=== PATIENT | female | born 1995 | race African-American/Black ===

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

== ENCOUNTER 2018-02-22 22:01 | Emergency (ER) | payer OTHER ==
[2018-02-22 22:10] VITALS: BP 110/74
== END 2018-02-22 22:42 | disposition left against medical advice (07) ==
LOC: ED 22:01
DX: B99.9 Unspecified infectious disease (principal); Z53.21 Procedure and treatment not carried out due to patient leaving prior to being seen by health care provider

== ENCOUNTER 2019-03-12 12:55 | Emergency (ER) | payer OTHER ==
[2019-03-12] MEDS ORDERED: Lidocaine 1% MPF ** 5 ML VIAL INJ ONE (14:59)
--- NOTE | 2019-03-12 15:03 | ED ---
Skin Complaint - HPI Summary HPI Summary: Patient is a 23-year-old female who presents emergency department for a painful lump to her right labia 3 days. Patient states she has had similar symptoms in the past but area has drained on its own. Patient denies past medical history. Denies fever or chills. Symptoms are mild in severity. Touching makes symptoms worse. Nothing makes symptoms better. - History of Current Complaint Chief Complaint: EDRashSkinAbscess Time Seen by Provider: 03/12/19 14:08 Stated Complaint: CYST PER PT Hx Obtained From: Patient Hx Last Menstrual Period: now Pain Intensity: 2 - Allergy/Home Medications Allergies/Adverse Reactions: Allergies Allergy/AdvReac Type Severity Reaction Status Date / Time No Known Allergies Allergy Verified 03/12/19 13:01 PMH/Surg Hx/FS Hx/Imm Hx Previously Healthy: Yes - Cancer History Hx Hematologic Symptoms: No Hx Palliative Cancer Treatment: No - Surgical History Hx Anesthesia Reactions: No Infectious Disease History: No Infectious Disease History: Denies: Traveled Outside the [place] in Last 30 Days - Family History Known Family History: Positive: Other - migraines, Non-Contributory - Social History Occupation: Student Lives: With Family Alcohol Use: None Substance Use Type: Reports: None Hx Tobacco Use: No Smoking Status (MU): Never Smoked Tobacco Review of Systems Constitutional: Negative Gastrointestinal: Negative Positive: other - labial abscess All Other Systems Reviewed And Are Negative: Yes Physical Exam Triage Information Reviewed: Yes Vital Signs On Initial Exam: Initial Vitals Temp Pulse Resp BP Pulse Ox 98.3 F 69 16 120/74 96 03/12/19 12:57 03/12/19 12:57 03/12/19 12:57 03/12/19 12:57 03/12/19 12:57 Vital Signs Reviewed: Yes Appearance: Positive: Well-Appearing - Patient sitting on bed in no acute distress. Pleasant. Skin: Positive: Warm, Dry, Other - 2 centimeter area of fluctuance and erythema noted to lateral aspect of right upper labia majora. Area tender to palpation. Head/Face: Positive: Normal Head/Face Inspection Eyes: Positive: Normal, EOMI Neck: Positive: Supple Neurological: Positive: Normal, CN Intact II-III Psychiatric: Positive: Affect/Mood Appropriate Procedures - Sedation Patient Received Moderate/Deep Sedation with Procedure: No - Incision and Drainage Right Groin Site: right superior labia major Anesthesia: Local, Lidocaine Instrument(s): Scalpel Diagnostics - Vital Signs Vital Signs Temp Pulse Resp BP Pulse Ox 03/12/19 12:57 98.3 F 69 16 120/74 96 - Laboratory Lab Statement: Any lab studies that have been ordered have been reviewed, and results considered in the medical decision making process. Course/Dx - Course Course Of Treatment: Patient with small labial abscess that was incised and drained as noted above. A small amount of purulent discharge was expressed. Wound culture obtained. We'll place patient on Bactrim. Advised to continue warm compresses. Tylenol or Motrin pain as directed. Follow-up with the health clinic for wound check in 3 days. To return to the ER for increased redness, pain, swelling or if concerned. Patient understands and agrees with plan. - Differential Diagnoses - Skin Complaint Differential Diagnoses: Abscess, Cellulitis - Diagnoses Provider Diagnoses: Labial abscess Discharge ED - Sign-Out/Discharge Documenting (check all that apply): Patient Departure - Discharge Plan Condition: Good Disposition: HOME Prescriptions: Sulfamethox/Trimethoprim DS* [Bactrim DS 800/160 TAB*] 1 tab PO BID #20 tab Patient Education Materials: Abscess (ED) Forms: *Work Release Referrals: [facility] [Outside] Additional Instructions: Schedule a follow up appointment for wound check with [facility] in 48 hours Take antibiotic as directed Apply warm compresses three times a day Return to ER for increased redness, swelling, pain, fever, or if concerned - Billing Disposition and Condition Condition: GOOD Disposition: Home - Attestation Statements Provider Attestation: pt seen by midlevel provider independently, based on their assessment, it was not necessary to present the case to me but I was available for consultation. I did not form a physician-patient relationship with the patient. The chart however, has been reviewed. am signing this note strictly in an administrative capacity.
[2019-03-12 17:16] VITALS: BP 107/77
== END 2019-03-12 16:50 | disposition home or self-care (01) ==
LOC: ED 12:55
DX: N76.4 Abscess of vulva (principal)
CPT/HCPCS: 56405; 99282